=== PATIENT | male | born 1955 | race Caucasian/White ===

== ENCOUNTER 2017-05-23 15:28 | Outpatient (CLI) | payer BC ==
--- NOTE | 2017-05-23 17:42 | RAD ---
LEFT HIP TWO VIEWS; 05/23/17 HISTORY: Bilateral hip pain. FINDINGS: There are mild degenerative changes in the left hip joint manifested by osteophyte formation and sub chondral cysts and joint space narrowing. IMPRESSION: Left hip osteoarthritis. POS: SUKHDEV
--- NOTE | 2017-05-23 17:44 | RAD ---
RIGHT HIP TWO VIEWS: 05/23/17 HISTORY: Bilateral hip pain. Right hip pain. FINDINGS: There are mild degenerative changes in the right hip joint manifested by osteophyte formation, joint space narrowing, and subchondral cyst formation. Degenerative changes are worse on the right compar ed to the left. IMPRESSION: Right hip osteoarthritis. POS: SOFÍA
== END 2017-05-23 15:29 | disposition home or self-care (01) ==
LOC: SCSRAD 15:28
PROVIDERS: ATTEND Family Medicine
DX: M25.551 Pain in right hip (principal); M16.0 Bilateral primary osteoarthritis of hip

== ENCOUNTER 2017-08-08 17:34 | Inpatient (IN) | payer BC ==
[2017-08-08] MEDS ORDERED: Propafenone HCl 150 MG TAB PO SCH (19:45)
[2017-08-08 21:10] VITALS: BMI 26.7
--- NOTE | 2017-08-08 21:26 | PDOC.EVN ---
Event Note - Event Note Event Note: [id number] 1. AFIB RVR 2. Thrombocytopenia 3. S/P Rt JOHNNY plan: see orders
[2017-08-08 21:28] LABS: Troponin I 0.074 ng/mL (< 0.028)
[2017-08-08] MEDS ORDERED: Ondansetron HCl/PF 4 MG/2 ML Vial IVP PRN ×2 (22:12→22:30)
[2017-08-08] MEDS ORDERED: HYDROcodone/Acetaminophen 5/325 mg Tablet PO PRN (22:12)
[2017-08-08] MEDS ORDERED: Morphine 2 MG/ML SYRINGE SLOW IVP PRN (22:18)
[2017-08-08] MEDS ORDERED: Eucerin (Mineral Oil/Petrolatum,White) 30 gm Jar TOP PRN (22:30)
[2017-08-08] MEDS ORDERED: Naloxone HCl 0.4 mg/ml Vial IV PRN (22:30)
[2017-08-08] MEDS ORDERED: Promethazine HCl 25 MG SUPP PR PRN (22:30)
[2017-08-08] MEDS ORDERED: Zolpidem Tartrate 5 MG TAB PO PRN (22:30)
[2017-08-08] MEDS ORDERED: diphenhydrAMINE 50 MG/ML VIAL IVP PRN (22:30)
[2017-08-08] MEDS ORDERED: diphenhydrAMINE 50 MG/ML VIAL IM PRN (22:30)
[2017-08-08] MEDS ORDERED: traMADol HCl 50 MG TAB PO PRN ×2 (22:30)
[2017-08-08] MEDS ORDERED: Naloxone HCl 0.4 mg/ml Vial IVP PRN (22:30)
[2017-08-08] MEDS ORDERED: Fentanyl/Bupivacaine 250 ML in Premix Bag 1 BAG EPIDURAL SCH (22:30)
[2017-08-08] MEDS ORDERED: Promethazine HCl 25 MG/ML VIAL IM PRN (22:30)
[2017-08-08] MEDS ORDERED: diphenhydrAMINE 25 MG CAP PO PRN (22:30)
[2017-08-08] MEDS: Ketorolac Tromethamine 30 MG/ML VIAL IVP SCH (23:25)
[2017-08-09 01:02] LABS: Troponin I 0.088 ng/mL (< 0.028)
--- NOTE | 2017-08-09 01:35 | HP ---
DATE OF ADMISSION: 08/08/2017 CHIEF COMPLAINT: Atrial fibrillation. HISTORY OF PRESENT ILLNESS: Patient is 61-year-old male status post right total hip arthroplasty. Kaley robertson initially went to the outside hospital for outpatient surgery for right total hip replacement. Following this surgery, patient was found, in fact, with atrial fibrillation RVR, so patient was st arted on Cardizem drip and transferred here. Patient denies any history of heart problems. Denies a ny chest pain. Denies any palpations. Complains of some dry cough and dyspnea intermittent for the past 1 week. Denies any fever, denies any chills, denies any diarrhea, denies any palpitations. Den ies nausea, denies vomiting. PAST MEDICAL HISTORY: None. PAST SURGICAL HISTORY: Hernia repair. SOCIAL HISTORY: Denies smoking, denies alcohol, denies any drugs. ALLERGIES: No known drug allergies. FAMILY HISTORY: Denies any heart problems. REVIEW OF SYSTEMS: Constitutional: Denies any fever, denies any chills. Eyes: Denies any vision p roblems. Ears: Denies any hearing loss. Neck: Denies any neck pain. Cardiovascular: Denies any chest pain. Respiratory: Positive for dry cough and dyspnea. Cranial nerve system: Denies syncope, denies lightheadedness. Psychiatric: Denies anxiety. Integu ment: Denies any rash. Genitourinary: Denies dysuria. All other systems are reviewed and are nega tive. PHYSICAL EXAMINATION: CONSTITUTIONAL/VITAL SIGNS: At the time of H&P performed, blood pressure is 116/78, heart rate 106, respiration rate 18. GENERAL: The patient appears comfortable. HEENT: Anterior nares patent. Nose normal. Ears normal. Teeth intact. Tongue is moist. NECK: Supple, no JVD. CARDIOVASCULAR: S1, S2 present. Regular rate and rhythm, no murmurs, no rubs, no gallops. RESPIRATORY SYSTEM: No wheezing, no rhonchi. Breath sounds bilaterally. GASTROINTESTINAL: Abdomen is soft, nontender, no guarding, no organomegaly. MUSCULOSKELETAL: No edema. CRANIAL NERVE SYSTEM: Awake, follows commands. Speech clear. PSYCHIATRIC: Mood appropriate at this time. LABORATORY DATA: At the time of H&P performed, labs done in the outside ER showed white count 4.8, h emoglobin 14.5, platelet count 97. BMP showed sodium 142, potassium 4.6, chloride 99, CO2 of 34, BUN 16, creatinine 0.9. UA with wbc's 0. EKG, tele positive for atrial fibrillation with rapid ventric ular response. ASSESSMENT AND PLAN: Patient is 61-year-old male. 1. Atrial fibrillation with rapid ventricular response. Plan to consult Cardiology to evaluate the patient. Plan to check cardiac enzymes. Plan to check 2D echo. Plan to check TSH and mag level als o. We will continue Cardizem drip. 2. Thrombocytopenia, etiology unclear. Monitor platelet count. Repeat CBC with diff in a.m. 3. Status post right total hip arthroplasty. Plan to consult PT, OT and rehabilitation and plan to consult Ortho to evaluate the patient. 4. Pain p.r.n. pain meds. Case was discussed in detail with the patient and patient's family also.
--- NOTE | 2017-08-09 01:44 | CON ---
DATE OF CONSULTATION: 08/08/2017 REFERRING PHYSICIAN: Rodrick Frye MD HISTORY OF PRESENT ILLNESS: The patient a pleasant 61-year-old gentleman who underwent surgery today and went into an irregular heart rate. The patient has no previous cardiac history. He underwent hip surgery today. He was noted to be in a rapid irregular heart rhythm. The patient denied having any palpitations. He denies having any chest discomfort or dyspnea. The patient denies having any history of palpitations. PAST MEDICAL HISTORY: Dyslipidemia. PAST SURGICAL HISTORY: Hip surgery. SOCIAL HISTORY: Nonsmoker. FAMILY HISTORY: No strong family history of heart disease. ALLERGIES: No known drug allergies. MEDICATIONS: None. ALLERGIES: None. REVIEW OF SYSTEMS: Ten-point system otherwise unremarkable. PHYSICAL EXAMINATION: GENERAL: Well-developed gentleman in no acute distress. VITAL SIGNS: Blood pressure 119/78, heart rate is 106. NECK: No jugular venous distention. LUNGS: Clear to auscultation. HEART: Irregular rate and rhythm, normal S1, S2, no murmurs. ABDOMEN: Nondistended. EXTREMITIES: Showed no edema. SKIN: Warm and dry. NEUROLOGIC: Nonfocal. VASCULAR: Radial pulses are 2+. LABORATORY: Results are pending. EKG revealed atrial fibrillation with an ST- T wave abnormality suggestive of ischemia. IMPRESSION: 1. New onset atrial fibrillation. 2. History of dyslipidemia. This gentleman has gone into atrial fibrillation. We will try to convert him with propafenone. We will check an echocardiogram. We will follow this patient with you through his hospitalization. RYAN
[2017-08-09 03:35] LABS: #Lymphocytes 0.9 thou/uL (1.20-3.40); #Monocytes 1.4 thou/uL (0.11-0.59); #Neutrophils 12.5 thou/uL (1.40-6.50); %Basophils 0.2 % (0.0-1.0); %Eosinophils 0.1 % (0.0-10.0); %Lymphocytes 6.1 % (21.0-51.0); %Monocytes 9.4 % (0.0-10.0); Hematocrit 34.9 % (42.0-52.0); Mean Platelet Volume 7.2 fL (7.4-10.4); White Blood Cell (WBC) Count 14.9 thou/uL (4.8-10.8)
[2017-08-09 03:54] LABS: Anion Gap 10 mmol/L (10-20); BUN (Urea Nitrogen) 26 mg/dL (8.4-25.7); Calc. Creatinine Clearance 107 mL/min (70-130); Calcium 9.1 mg/dL (7.8-10.44); Carbon Dioxide 28 mmol/L (22-29); Chloride 102 mmol/L (98-107); Estimated GFR-MDRD 75; Magnesium 1.9 mg/dL (1.6-2.6)
[2017-08-09 04:00] LABS: Troponin I 0.079 ng/mL (< 0.028)
[2017-08-09] MEDS: Ketorolac Tromethamine 30 MG/ML VIAL IVP SCH ×3 (05:35→18:30)
[2017-08-09] MEDS ORDERED: FLU VACC QS2017-18 36 mo. & older 0.5 ML SYRINGE IM ONE (09:00)
[2017-08-09] MEDS: Famotidine 20 MG TAB PO SCH ×2 (09:24→21:26)
--- NOTE | 2017-08-09 14:24 | PDOC.PN ---
- Subjective Encounter Start Date: 08/09/17 Encounter Start Time: 09:20 Pt seen for followup re: atrial fibrillation. Denies any complaints. - Objective Vital Signs & Weight: Vital Signs (12 hours) Temp Pulse Pulse Pulse Resp BP BP 08/09/17 11:20 98.1 F 71 15 08/09/17 09:55 72 69 156/87 H 163/82 H 08/09/17 08:00 98.4 F 67 18 08/09/17 07:21 98.4 F 67 18 08/09/17 05:32 97.8 F 74 16 08/09/17 04:13 BP BP Pulse Ox Pulse Ox Pulse Ox 08/09/17 11:20 131/76 93 L 08/09/17 09:55 134/79 94 L 97 08/09/17 08:00 96 08/09/17 07:21 117/65 96 08/09/17 05:32 112/68 95 08/09/17 04:13 96 Weight Weight 214 lb 4.8 oz Result Diagrams: 08/09/17 03:15 08/09/17 03:15 Phys Exam - Physical Examination Constitutional: NAD HEENT: moist MMs Neck: supple Respiratory: clear to auscultation bilateral Cardiovascular: RRR Gastrointestinal: soft, non-tender s/p R hip surgery Neurological: moves all 4 limbs Psychiatric: normal affect, A&O x 3 Dx/Plan (1) Afib Code(s): I48.91 - UNSPECIFIED ATRIAL FIBRILLATION Status: Acute (2) Low TSH level Code(s): R94.6 - ABNORMAL RESULTS OF THYROID FUNCTION STUDIES Status: Acute (3) Arthritis Code(s): M19.90 - UNSPECIFIED OSTEOARTHRITIS, UNSPECIFIED SITE Status: Chronic - Plan * . Pt converted to sinus rhythm. Check free T3, free T4. DVT prophylaxis and pain management per orthopedic surgery. Review of Systems - Review of Systems Respiratory: negative: Cough, Dry, Shortness of Breath, Hemoptysis, SOB with Excertion, Pleuritic Pain, Sputum, Wheezing Cardiovascular: negative: Chest Pain, Palpitations, Orthopnea, Paroxysmal Noc. Dyspnea, Edema, Light Headedness - Medications/Allergies Allergies/Adverse Reactions: Allergies Allergy/AdvReac Type Severity Reaction Status Date / Time No Known Allergies Allergy Unverified 08/08/17 19:34 Medications: Current Medications Diphenhydramine HCl (Benadryl) 25 mg PO Q3H PRN PRN Reason: Itching Diphenhydramine HCl (Benadryl) 25 mg IM Q3H PRN PRN Reason: Itching Diphenhydramine HCl (Benadryl) 25 mg IVP Q3H PRN PRN Reason: Itching Enoxaparin Sodium (Lovenox) 40 mg SC 1800 MOHIT Famotidine (Pepcid) 20 mg PO BID [facility] Last Admin: 08/09/17 09:24 Dose: Not Given Fentanyl Citrate 250 ml/ (Device) 250 mls @ 6 mls/hr EPIDURAL INF [facility] Last Admin: 08/08/17 23:54 Dose: 250 mls Ketorolac Tromethamine (Toradol) 30 mg IVP Q6HR [facility] Stop: 08/10/17 18:01 Last Admin: 08/09/17 05:35 Dose: 30 mg Metoprolol Succinate (Toprol Xl) 25 mg PO QAM [facility] Last Admin: 08/09/17 09:24 Dose: 25 mg Mineral Oil/White Petrolatum (Eucerin Cream) 0 gm TOP PRN PRN PRN Reason: Itching Naloxone HCl (Narcan) 0.2 mg IV Q5MIN PRN PRN Reason: RR <=8 OR OBTUNDED/UNAROUSABLE Naloxone HCl (Narcan) 0.1 mg IVP Q15MIN PRN PRN Reason: URINARY RETENTION Ondansetron HCl (Zofran) 4 mg IVP Q6H PRN PRN Reason: Nausea/Vomiting Ondansetron HCl (Zofran) 4 mg IVP Q6H PRN PRN Reason: Nausea/Vomiting Promethazine HCl (Phenergan) 12.5 mg IM Q4H PRN PRN Reason: Nausea Promethazine HCl (Phenergan Suppository) 25 mg MD Q4H PRN PRN Reason: Nausea/Vomiting Tramadol HCl (Ultram) 50 mg PO Q6H PRN PRN Reason: Mild Pain 1-3 Tramadol HCl (Ultram) 100 mg PO Q6H PRN PRN Reason: Moderate Pain 4-6 Zolpidem Tartrate (Ambien) 5 mg PO HSPRN PRN PRN Reason: Insomnia
[2017-08-09 16:15] LABS: Free T3 2.08 pg/mL (1.71-3.71)
[2017-08-09] MEDS: Enoxaparin Sodium 40 MG/0.4 ML SYRINGE SC SCH ×2 (18:28→20:26)
[2017-08-09] MEDS ORDERED: Enoxaparin Sodium 40 MG/0.4 ML SYRINGE SC SCH (21:00)
[2017-08-10] MEDS: Ketorolac Tromethamine 30 MG/ML VIAL IVP SCH ×3 (00:43→11:50)
[2017-08-10] MEDS: Famotidine 20 MG TAB PO SCH (08:44)
[2017-08-10] MEDS ORDERED: HYDROcodone/Acetaminophen 7.5/325 mg Tablet PO PRN ×2 (10:48)
[2017-08-10 12:39] VITALS: BP 178/90; TEMP 97
--- NOTE | 2017-08-10 19:31 | DIS ---
DATE OF ADMISSION: 08/08/2017 DATE OF DISCHARGE: 08/10/2017 PRIMARY CARE PHYSICIAN: Dr. Victor M Banda. DISCHARGE DIAGNOSIS: Paroxysmal atrial fibrillation. CONDITION OF PATIENT ON THE DAY DISCHARGE: Stable. I assessed Mr. Coronado on the day of discharge. He denies any chest pain or shortness of breath. Vital signs are stable. S1 and S2 are heard, regul ar. Lungs are clear to auscultation bilaterally. DISCHARGE MEDICATIONS: Aspirin 325 mg 2 times a day, Anthony p.r.n., Toprol-XL 25 mg daily. CONSULTATIONS DURING THIS HOSPITALIZATION: Orthopedics, Dr. Johnathan Toledo and Cardiology, Dr Thania Donovan. HOSPITAL COURSE: Mr. Coronado is a pleasant 61-year-old gentleman who was admitted to [facility] for atrial fibrillation, which he had developed after he underwent shoulder surgery at [facility] [place]. He was seen by Cardiology Service and started on propafenone. He converted to normal sinus rhythm, and continued to stay in normal sinus rhythm. He was seen by Orthopedics and Anesthesiology Services as well. He received pain medications. He improved clinically and was disc harged on 08/10/2017. He had a low TSH of 0.2172. However, free T3 and free T4 were normal at 2.08 and 1.34 respectively. He will need a repeat thyroid profile check through his primary care physician's office. Many thanks for allowing me to participate in your patient's care. Please feel free to contact me wi th any questions or concerns. DISCHARGE DESTINATION: Home. TOTAL AMOUNT OF TIME SPENT COORDINATING THIS DISCHARGE: 25 minutes.
[2017-08-10] MEDS ORDERED: Aspirin 325 MG TAB PO SCH (21:00)
[2017-08-25] MEDS ORDERED: Aspirin 325 MG TAB PO SCH (09:00)
== END 2017-08-10 13:46 | disposition home or self-care (01) | DRG 310 ==
LOC: IMCU/EMU 18:42 → SURG B 08-09 17:16
PROVIDERS: ADMIT Internal Medicine Infectious Disease; ATTEND Internal Medicine Infectious Disease
DX: I48.0 Paroxysmal atrial fibrillation (principal); D69.6 Thrombocytopenia, unspecified; E78.5 Hyperlipidemia, unspecified; Z96.641 Presence of right artificial hip joint; R94.6 Abnormal results of thyroid function studies; M19.90 Unspecified osteoarthritis, unspecified site
CPT/HCPCS: 36415; 80048; 82553; 83735; 84439; 84443; 84481; 84484; 85025; 93005; 93010; 93306; G8978-GP-CJ; G8979-GP-CH; G8987-GO-CI; G8988-GO-CI; G8989-GO-CI; J1650; J1885; J7050